=== PATIENT | female | born 1990 | race Caucasian/White ===

== ENCOUNTER 2020-04-06 15:45 | Emergency (ER) | payer OTHER, SELFPAY ==
[2020-04-06 16:00] VITALS: BP 124/79; PULSE 106; RESP 20; TEMP 36.9; O2SAT 99
--- NOTE | 2020-04-06 16:10 | ED.DENTAL ---
HPI - Dental/Oral General Chief complaint: Dental/Oral Stated complaint: toothache Time Seen by Provider: 04/06/20 16:10 Source: patient and RN notes reviewed Mode of arrival: ambulatory Limitations: no limitations History of Present Illness HPI Narrative: This is a 29 years old female presented office for evaluation of dental pain for one week. The tooth that bothers her was her tooth that she had root canal and grown placed 10 years ago. Pain is getting worse that radiate to her face/head. Denies tooth trauma/injury. Related Data Home Medications Medication Instructions Recorded Confirmed citalopram [Celexa] 20 mg PO DAILY 04/06/20 04/06/20 Allergies Allergy/AdvReac Type Severity Reaction Status Date / Time No Known Allergies Allergy Verified 04/06/20 16:03 Review of Systems Review of Systems: Narrative: CONSTITUTIONAL:Reports low grade fever a few days ago; but not currrently ENT: Denies difficulty swallow; but painful to chew CARDIOVASCULAR: Denies chest pain RESPIRATORY: Denies dyspnea GASTROINTESTINAL: Denies abdominal pain, vomiting, diarrhea. Reports nausea at time due to pain SKIN: Denies rash MUSCULOSKELETAL: Denies acute back pain NEUROLOGIC: Denies lightheaded PMFSH Social History Social History Smoking status: Never smoker Second hand tobacco smoke exposure: Yes Comments At time of signature, I agree with nursing past medical, surgical, social and family history. There is no relevant family history pertinent to the presenting complaint. Exam Narrative: Exam Narrative: GENERAL: This is a well-nourished, well-developed patient, in no apparent distress. EYES: Sclera and conjunctivae normal ENT: External ears normal. Nose and lips normal. Airway patent.The tooth in question is very carious and the gum is swollen and tender around it. There is no facial swelling, cervical or submandibular lymphadenopathy. The patient appears uncomfortable and in pain. CARDIOVASCULAR: Regular rate and rhythm without murmurs, gallops, or rubs. RESPIRATORY: Clear to auscultation. Breath sounds equal bilaterally. No wheezes, rales, or rhonchi. GASTROINTESTINAL: Abdomen soft, non-tender, nondistended. Bowel sounds are active. No hepato-splenomegaly, or palpable masses. No guarding. SKIN: warm, intact with no suspicious lesions or rash, good texture and turgor. NEURO: awake, alert, and oriented to person, place and time. There were no obvious focal neurologic abnormalities. Course Vital Signs Vital signs: Vital Signs Temperature 98.5 F 04/06/20 16:00 Pulse Rate 106 H 04/06/20 16:00 Respiratory Rate 20 04/06/20 16:00 Blood Pressure 124/79 04/06/20 16:00 Pulse Oximetry 99 04/06/20 16:00 Temperature 98.5 F 04/06/20 16:00 Pulse Rate 106 H 04/06/20 16:00 Respiratory Rate 20 04/06/20 16:00 Blood Pressure 124/79 04/06/20 16:00 Pulse Oximetry 99 04/06/20 16:00 MDM - Dental/Oral MDM Narrative Medical decision making narrative: Discharge instructions reviewed with patient, as well as provided in writing per nursing staff. The instructions also include specific and strict return/GO TO THE ER as well as f/u information. All questions have been answered, and the patient deny any further questions with discharge and discharge plan. Differential Diagnosis Differential diagnosis: Likely gingival abscess, dental caries, toothache, dental abscess and aphthous ulcer Critical Care Time Critical Care Time Critical Care Time: No Discharge Plan Discharge Clinical Impression: Toothache Patient Disposition: Home, Self-Care Condition: Stable Instructions: Antibiotic Form, Toothache (ED) Additional Instructions: Take antibiotic until it's gone. Brushing teeth at least twice daily with gentle flossing. Avoid temperature extremes---when you eat. Salt gargle to rinse your mouth after every meal You may apply ice to
== END 2020-04-06 16:20 | disposition home or self-care (01) ==
PROVIDERS: Emergency Provider Nurse Practitioner; PCP Internal Medicine
DX: K08.89 Other specified disorders of teeth and supporting structures (principal)
CPT/HCPCS: 99213; G0463

== ENCOUNTER 2020-05-28 17:08 | Emergency (ER) | payer OTHER, SELFPAY ==
[2020-05-28 17:15] VITALS: BP 121/74; PULSE 79; RESP 18; TEMP 37.2; O2SAT 97
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
== END 2020-05-28 17:52 | disposition home or self-care (01) ==
PROVIDERS: Emergency Provider Nurse Practitioner Family; PCP Internal Medicine
DX: S09.22XA Traumatic rupture of left ear drum, initial encounter (principal); H66.002 Acute suppurative otitis media without spontaneous rupture of ear drum, left ear; F41.9 Anxiety disorder, unspecified; F17.210 Nicotine dependence, cigarettes, uncomplicated; Y04.2XXA Assault by strike against or bumped into by another person, initial encounter
CPT/HCPCS: 99213; G0463

== ENCOUNTER 2021-10-02 06:48 | Inpatient (IN) | payer OTHER, SELFPAY ==
[2021-10-02] VITALS (71 sets, daily range): BP systolic 88–156; BP diastolic 34–100; PULSE 55–106; RESP 16; TEMP 36.1–37.1; O2SAT 96–100; BMI 54.1
--- NOTE | 2021-10-02 07:32 | LDADM ---
This patient, Julia Ledesma, was admitted to Labor/Delivery/Recovery 109 on 10/02/21 at 06:48. Plans for labor, pain management and were discussed with patient. Patient/family oriented to hospital policies and general routines including ID bracelet, bed and alarms, visiting hours, pain management, procedures, bathroom and other care routines, personal items, smoking policy, room service/diet and guest tray routines, security routines, and visiting hours. Patient/Family are encouraged to report perceived risks to care and to ask questions if they do not understand what they are told or what they should do. See OBIX for further documentation.
[2021-10-02 08:00] LABS: Basophils Percent Auto 0.2 % (0.2-1.2); Eosinophils Absolute Auto 0.1 K/mm3 (0-0.3); Hematocrit 36.8 % (37.0-47.0); Hemoglobin 12.1 g/dL (12.0-15.0); Immature Granulocyte Absolute 0.04 K/mm3 (0.00-0.031); Immature Granulocyte Percent A 0.5 % (0-0.5); Lymphocytes Absolute Auto 1.58 K/mm3 (0.9-3.2); Mean Corpuscular HGB Conc 32.9 g/dl (32-36); Mean Corpuscular Hemoglobin 27.9 pg (26-34); Mean Platelet Volume 9.8 fl (7.4-10.4); Monocytes Absolute Auto 0.5 K/mm3 (0.1-0.6); Monocytes Percent Auto 5.5 % (2.6-8.5); Neutrophils Absolute Auto 6.6 K/mm3 (1.3-6.7); Neutrophils Percent Auto 74.8 % (45.5-73.1); Platelet Count Result 260 k/mm3 (150-375); Red Blood Count 4.33 M/mm3 (4.2-5.4); Red Cell Distribution Width 13.9 % (11.5-14.5); White Blood Count 8.8 K/mm3 (4.5-10.0)
--- NOTE | 2021-10-02 08:01 | WPDOBADMIT ---
Obstetrics - Admit Note Admission Note: record reviewed. No pertinent additions to the history and/or any subsequent changes in the physical findings that are not consistent with the expected course of the were found. BERNIE GARBER 2/-3 Additions to the history and/or subsequent changes in the physical findings follow. None.
[2021-10-02 08:16] LABS: Amphetamine Screen Urine Negative (Negative); Barbiturate Screen Urine Negative (Negative); Benzodiazepines Screen Urine Negative (Negative); Cannabinoid Screen Urine Positive (Negative); Cocaine Screen Urine Negative (Negative); Methadone Screen Urine Negative (Negative); Opiate Screen Urine Negative (Negative); Phencyclidine Screen Urine Negative (Negative)
[2021-10-02] MEDS: OXYTOCIN 30 UNITS/NS 500 ML 30 UNITS/500 ML BAG IV CONT (08:23)
[2021-10-02] MEDS: LACTATED RINGERS 1,000 ML 125 ML IV CONT (08:23)
[2021-10-02 09:08] LABS: Rapid Plasma Reagin Non-Reactive (NonReactive)
--- NOTE | 2021-10-02 11:38 | PM.OBPNLAB ---
Pain Control Date/time seen: 10/02/21 11:38 SVE /-2 AROM small amount of fluid, unable to determine color, no odor noted, internal monitors placed
[2021-10-02] MEDS: fentaNYL CITRATE INJ (*CRX) 100 MCG/2 ML VIAL 50 MCG IV PUSH (14:06)
--- NOTE | 2021-10-02 14:51 | PM.OBPRVD ---
OB - Delivery Note Procedure Delivery date: 10/02/21 Procedure: vaginal delivery events: Oligohydramnios Intrapartal events: Deceleration (variables) Induction method: AROM and per pitocin protocol Delivery monitor: external FHT, external uterine, internal FHT and internal uterine Route of delivery: Episiotomy description: None Laceration Description: None Specimen: Yes Quantitative Blood Loss (ml): 65 Anesthesia type: None Disposition: floor [place] Baby Date of : 10/02/21 Time of : 14:43 Weeks of gestation at delivery: 40 gender: Female presentation: vertex position: Left Occiput Anterior Placenta delivery description: Spontaneous cord vessel description: 3 Vessels, Nuchal Cord, Loose, Reduced, Clamped/Cut and Delayed Cord Clamping score one minute: 8 score five minutes: 9 Narrative: mother and baby skin to skin in stable condition
[2021-10-02] MEDS: OXYTOCIN 30 UNITS/NS 500 ML 30 UNITS/500 ML BAG 125 UNITS IV CONT (15:13)
[2021-10-02] MEDS: IBUPROFEN 600 MG TABLET PO ×2 (16:13→23:34)
[2021-10-02] MEDS: WITCH HAZEL 40 PADS 1 PAD TOPICAL (17:21)
--- NOTE | 2021-10-02 18:10 | PC.NURSE ---
Patient transferred to post room #289 via wheel chair. Support person present. Oriented to unit, room, information board, rooming in, admission packet and security measures. Patient verbalizes understanding.
[2021-10-03 04:47] LABS: Hematocrit 32.6 % (37.0-47.0); Hemoglobin 10.7 g/dL (12.0-15.0)
--- NOTE | 2021-10-03 07:41 | P.PNOB_ITS ---
OB - PN: Subj Subjective Date/time seen: 10/03/21 07:41 Patient comments: no complaints baby status: doing well OB - PN: Obj Data Labs CBC & Chem 7: 10/03/21 04:39 Labs: Laboratory Results - last 24 hr 10/02/21 10/02/21 10/02/21 07:21 07:21 07:21 WBC 8.8 RBC 4.33 Hgb 12.1 Hct 36.8 L MCV 85.0 MCH 27.9 MCHC 32.9 RDW 13.9 Plt Count 260 MPV 9.8 Immature Gran % (Auto) 0.5 Neut % (Auto) 74.8 H Lymph % (Auto) 18.0 L [place] % (Auto) 5.5 Eos % (Auto) 1.0 Baso % (Auto) 0.2 Lymph # (Auto) 1.58 [place] # (Auto) 0.5 Eos # (Auto) 0.1 Baso # (Auto) 0.0 Abs Immat Gran (auto) 0.04 H Absolute Neuts (auto) 6.6 Absolute Nucleated RBC 0.0 Nucleated RBC % 0.0 Urine Opiates Screen Urine Methadone Screen Ur Barbiturates Screen Ur Phencyclidine Scrn Ur Amphetamine Screen U Benzodiazepines Scrn Urine Cocaine Screen U Cannabinoids Screen RPR Non-reactive Blood Type O Positive Antibody Screen Negative 10/02/21 10/03/21 07:21 04:39 WBC RBC Hgb 10.7 L Hct 32.6 L MCV MCH MCHC RDW Plt Count MPV Immature Gran % (Auto) Neut % (Auto) Lymph % (Auto) [place] % (Auto) Eos % (Auto) Baso % (Auto) Lymph # (Auto) [place] # (Auto) Eos # (Auto) Baso # (Auto) Abs Immat Gran (auto) Absolute Neuts (auto) Absolute Nucleated RBC Nucleated RBC % Urine Opiates Screen Negative Urine Methadone Screen Negative Ur Barbiturates Screen Negative Ur Phencyclidine Scrn Negative Ur Amphetamine Screen Negative U Benzodiazepines Scrn Negative Urine Cocaine Screen Negative U Cannabinoids Screen Positive A RPR Blood Type Antibody Screen OB - PN A/P Plan day: 1 Plan: routine care and discharge home (RTC in 4 weeks) Time Spent With Patient Time: Total time spent is greater than 50% in coordination of care (as documented) at patient's floor/unit and/or counseling patient: Time with patient: less than 15 minutes Review of Systems Review of Systems: All systems reviewed & are unremarkable except as noted in HPI and below Exam Narrative: Fundus firm and vaginal flow controlled. No lower ext redness, w armth, or edema. Negative homans. Const: General: comfortable Chest: Breast/axilla inspection: normal inspection of the breasts Resp: Effort & Inspection: normal respiratory effort Cardio: Rate: regular rate GI: GI Palp: Yes Soft to palpation Psych: Appearance: grossly normal Affect: normal affect Attitude: cooperative Thought content: Yes Normal thought content present Judgement: Good judgement present (Psych)
[2021-10-03 08:45] VITALS: BP 120/69; PULSE 58; PULSE 81; RESP 16; TEMP 36.6; O2SAT 97
[2021-10-03] MEDS: MULTIVIT/MIN/PREN/FOL AC/IRON TABLET 1 TAB PO (08:49)
[2021-10-03] MEDS: IBUPROFEN 600 MG TABLET PO (08:49)
[2021-10-03] MEDS: DOCUSATE SODIUM 100 MG CAPSULE PO (08:49)
[2021-10-03] MEDS: WITCH HAZEL 40 PADS 1 PAD TOPICAL (08:50)
[2021-10-03] MEDS: BENZOCAINE 20% AER SPR (*SP) 56 GM CAN 1 SPRAY TOPICAL (08:50)
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
[2021-10-03 12:45] VITALS: BP 132/78; PULSE 72; PULSE 81; RESP 16; RESP 18; TEMP 37; O2SAT 100; O2SAT 97
--- NOTE | 2021-10-03 20:22 | PC.NURSE ---
1430 DCFS worker present to notify mother that DCFS plans to take baby into protective custody upon discharge tomorrow. Pt visibly upset and crying. Pt answered DCFS questions and clarified information. She supplied names and numbers of her sister and mother as possible placement options for . 1530 Pt crying stating I can't do this , I can't be like this (crying) in front of her . She requests discharge. I explained to her that it would be in her and baby's best interest if she stayed an inpatient per her medical providers advice this morning. I also explained to her that leaving AMA and leaving the baby in our care might be detrimental to her case in court. I instructed her to call her support person and discuss it and that I would give her time to think it over. I then called Mami Casiano CNM from the nurses station and informed her of what had transpired. Mami Casiano stated that with her current blood pressures that she wanted her to remain inpatient and that if she insisted upon leaving she would do so against medical advice. 1634 Mother signed papers to leave AMA. She was instructed that leaving against medical advise would mean that she is responsible for the entire hospital bill, that leaving with elevated blood pressures could lead to seizures, stroke or even her . She states that she doesn't care. I again reiterated the fact that leaving would potentially work against her in the court of law. She states they don't care if I go or if I stay . I ask her if she would like to push the baby to the nurses station when she was ready to leave and she responded that she would. She did so, visible upset and crying. She stated that her sister was here to pick her up. supervisor lead burning, Sandra, was notified and came to unit. Mami Casiano CNM was notified. Dr. Barron ([facility] hop farm worker) and DCFS were notified.
== END 2021-10-03 16:34 | disposition left against medical advice (07) | DRG 560 ==
LOC: ANHLDR 06:54 → ANHOB2 18:13
PROVIDERS: Advanced Practice Midwife; Admitting Provider Obstetrics & Gynecology; Visit Provider Obstetrics & Gynecology
DX: O41.03X0 Oligohydramnios, third trimester, not applicable or unspecified (principal); Z37.0 Single live birth; Z3A.40 40 weeks gestation of pregnancy; O36.8330 Maternal care for abnormalities of the fetal heart rate or rhythm, third trimester, not applicable or unspecified; O99.344 Other mental disorders complicating childbirth; F43.10 Post-traumatic stress disorder, unspecified; F60.3 Borderline personality disorder; O99.214 Obesity complicating childbirth; E66.9 Obesity, unspecified; O99.324 Drug use complicating childbirth; F12.90 Cannabis use, unspecified, uncomplicated
CPT/HCPCS: 36415; 80307; 85014; 85018; 85025; 86592; 86850; 86900; 86901; 88307; A9270; J2590; J3010; J7120